=== PATIENT | female | born 1995 | race Two or more races ===

== ENCOUNTER 2024-08-20 10:09 | Emergency (ER) | payer MEDICAID, SELFPAY ==
[2024-08-20 10:51] VITALS: BP 136/87; PULSE 87; RESP 18; TEMP 36.4; O2SAT 95; BMI 35.4
--- NOTE | 2024-08-20 11:16 | XR_ITS ---
EXAMINATION: Ankle, right 3 views . Technique: Ankle AP, oblique, lateral 3 views Date and time of exam: August 20, 2024, 1128 hrs. Indications: Injury to the ankle yesterday, ankle pain Findings: No fracture or dislocation. Impression: No fracture or dislocation. No foreign body
--- NOTE | 2024-08-20 11:17 | EDNOTE_ITS ---
Lower Extremity Injury RME/HPI General Chief Complaint: Ankle/Foot Injury Stated Complaint: RIGHT ANKLE PAIN, SWELLING, BRUISED; TYLENOL 0700 Time Seen by Provider: 08/20/24 10:18 Arrival date/time: 08/20/24 10:09 This is a 29-year-old female that comes into the emergency room with complaints. c/o right ankle pain status post rolling it yesterday. Patient states that she has a hard time putting weight on it. Related Data Previous Rx's ?Medication ?Instructions ?Recorded cefuroxime axetil 500 mg tablet 500 mg PO BID #14 tabs 11/04/23 ibuprofen 800 mg tablet 800 mg PO TID PRN pain #30 t abs 11/04/23 ibuprofen 800 mg tablet 800 mg PO Q6H PRN pain #20 t abs 08/20/24 Allergies Allergy/AdvReac Type Severity Reaction Status Date / Time No Known Allergies Allergy Verified 06/07/23 11:09 Review of Systems Review of Systems Systems Reviewed: All systems reviewed, normal except as documented Past Medical History Past Medical History CARDIAC: Negative Cardiac Disorders or Congestive Heart Failure RESPIRATORY: Positive Asthma; Negative Chronic Obstructive Pulmonary Disease (COPD) GENITOURINARY: Positive Renal Disease ENDOCRINE: Negative Diabetes Mellitus Type 1 or Diabetes Mellitus Type 2 HEMATOLOGIC: Negative Sickle Cell Disease Social History SMOKING STATUS: Never smoker ED Exam Narrative Physical exam: VITAL SIGNS: Reviewed. GENERAL APPEARANCE: Alert and interactive, follows commands, no acute distress HEAD AND FACE: Non-traumatic. ENT: PERRL, conjuctiva pink and clear, eyelid no trauma, Mucous membrane moist. NECK: Supple, nontender, no nuchal rigidity. CHEST: No tenderness, no crepitus, no paradoxical movement, no retractions. LUNGS: breathing even and unlabored HEART: Regular rate, cap refill less than 2 seconds ABDOMEN: Soft, nondistended, no guarding, nontender NEUROLOGICAL: Gross motor function intact sensory function intact, Appropriate for age. MUSCULOSKELETAL: low back nontender, full range of motion. EXTREMITIES: right ank;le mild swelling, Distal neurovascular status intact bilateral foot SKIN: Color pink, dry, no rash, no lacerations, no abrasions, no contusions. Course Quality Measures none Orders Category Date Time Status XR ankle comp RT min 3V Stat Exams 08/20/24 11:16 Completed XR foot comp RT min 3V Stat Exams 08/20/24 13:41 Completed Ibuprofen Tab [Motrin Tab] Med 08/20/24 13:41 Discontinued 800 mg PO X1 ONE Vital Signs Vital signs: Vital Signs Temperature 97.6 F 08/20/24 10:51 Pulse Rate 87 08/20/24 10:51 Respiratory Rate 18 08/20/24 10:51 Blood Pressure 136/87 H 08/20/24 10:51 Pulse Oximetry (%) 95 08/20/24 10:51 Oxygen Delivery Method Room Air 08/20/24 10:51 Extremity Injury, Lower MDM Narrative MDM Narrative:: ankle x ray: Findings: No fracture or dislocation. Impression: No fracture or dislocation. No foreign body foot x ray: Findings: No acute fracture No dislocation No foreign body Impression: No acute fracture Today patient had xrays done. There was no acute fracture seen. Exam appeared unremarkable. I explained to patient at length that if there was continued pain to this area or worsened to come back to ED or see primary provider for more xrays or further testing such as CT scan or MRI. X rays are not perfect and sometimes serial films needed. Patient verbalized understanding. Patient states they will follow up with primary provider in 1-2 days or come back to ED if symptoms change or worsen. Patient data External records reviewed:: [facility] previous records Clinical information provided by:: patient Social determinants that could affect healthcare access:: none Patient has the following chronic illnesses:: none How is presenting disease/condition affected by chronic disease/condition?: no chronic disease Evaluation data The following diagnostics were reviewed and interpreted by me:: radiology exam(s) Lab and/or radiology exams considered but not ordered:: none Interpretation Summary: see note Medications / Prescriptions Medications or Prescriptions considered but not ordered:: none Medication administrations:: Medication Administration History Discontinued Medications Ibuprofen (Ibuprofen Tab 400 Mg Tablet) 800 mg PO X1 ONE Stop: 08/20/24 13:42 Last Admin: 08/20/24 14:04 Dose: 800 mg Documented By: [facility] Consultations Consultation(s) initiated? (list below): No Diagnosis Most likely diagnosis given after review of the tests above:: contusion Admission Indicated Admission indicated?: not indicated Admission Request Was there a request for admission?: No Disposition Plan Disposition Plan: Discharge Discharge Attestation Discharge Attestation: The patient and all family members were given an opportunity to ask questions and understood the discharge instructions. Discharge instructions specifically effects, indications for sooner follow up or return to the emergency department, and the expected course of current diagnosis. Patient condition: Stable Discharge Plan Plan Patient Disposition: HOME (Self Care) Patient condition on transfer: Stable Prescriptions/Referrals Prescriptions/Med Rec: New ibuprofen 800 mg tablet 800 mg PO Q6H PRN (Reason: pain) Qty: 20 0RF No Action cefuroxime axetil 500 mg tablet 500 mg PO BID Qty: 14 0RF ibuprofen 800 mg tablet 800 mg PO TID PRN (Reason: pain) Qty: 30 0RF Referrals: George Merino MD [Primary Care Provider] - In 1 week Problem List Clinical Impression: Contusion of foot Patient/Caregiver Discharge Instructions Discharge Activity: activity as tolerated Education Materials: Bruises (Contusions), ED RICE Additional Instructions: Follow up with primary provider in 1-2 days. Come back to ED if symptoms change or worsen Print Language: Gambian Stand Alone Forms: [employer] Award Info., Patient Portal Info Letter PA/WOLFGANG Supervising Physician PA/[employer] Supervising Physician: rodger
--- NOTE | 2024-08-20 13:41 | XR_ITS ---
Examination: Foot, right, 3 views Technique: AP, oblique, lateral views foot, 3 views Date and time of exam: August 20, 2024, 1358 hrs. Indications: Twisting injury to the foot today, foot pain Findings: No acute fracture No dislocation No foreign body Impression: No acute fracture
[2024-08-20] MEDS: IBUPROFEN TAB 400 MG TABLET 800 MG PO (14:04)
== END 2024-08-20 15:17 | disposition home or self-care (01) ==
PROVIDERS: Emergency Provider Nurse Practitioner Family; PCP Family Medicine
DX: S90.31XA Contusion of right foot, initial encounter (principal); X58.XXXA Exposure to other specified factors, initial encounter
CPT/HCPCS: 73610; 73630; 99283; A9270

== ENCOUNTER 2024-10-30 19:17 | Emergency (ER) | payer MEDICAID, SELFPAY ==
[2024-10-30 20:51] VITALS: BP 133/83; PULSE 91; RESP 20; TEMP 37.1; O2SAT 97
--- NOTE | 2024-10-30 21:09 | XR_ITS ---
Examination: Foot, left, 3 views Technique: AP, oblique, lateral views foot, 3 views Date and time of exam: October 30, 2024, 2108 hrs. Indications: Left foot pain today no trauma. Findings: No fracture. No cortical bone destruction. No foreign body Impression: No fracture or cortical bone destruction
--- NOTE | 2024-10-30 21:09 | PD.EDANKLE ---
Lower Extremity Injury RME/HPI General Chief Complaint: Ankle/Foot Injury Stated Complaint: LEFT FOOT PAIN Time Seen by Provider: 10/30/24 19:42 Source: patient, RN notes reviewed and old records reviewed Arrival date/time: 10/30/24 19:17 Mode of arrival: wheelchair Limitations: no limitations RME / HPI RME / HPI Narrative: 29yof presents to ED for pain to plantar left foot since yesterday. No preceding injury or fall. Patient reports increased pain with bearing weight and ambulation. Ibuprofen taken this morning with mild relief. No fever, redness, foot swelling or numbness/tingling reported. Related Data Previous Rx's ?Medication ?Instructions ?Recorded cefuroxime axetil 500 mg tablet 500 mg PO BID #14 tabs 11/04/23 ibuprofen 800 mg tablet 800 mg PO TID PRN pain #30 tabs 11/04/23 ibuprofen 800 mg tablet 800 mg PO Q6H PRN pain #20 tabs 08/20/24 Allergies Allergy/AdvReac Type Severity Reaction Status Date / Time No Known Allergies Allergy Verified 10/30/24 19:18 Review of Systems Review of Systems Systems Reviewed: All systems reviewed, normal except as documented Constitutional Constitutional: Denies chills and Denies fever(s) Musculoskeletal Musculoskeletal: Denies arthralgias, Denies joint swelling, Reports limited range of motion, Denies numbness and Denies tingling Comments: Reports foot pain Integumentary/Breasts Skin/Breast: Denies erythema Neurologic Neurologic: Denies numbness and Denies tingling Past Medical History Past Medical History RESPIRATORY: Positive Asthma GASTROINTESTINAL: Positive Obesity Social History SMOKING STATUS: Current some day smoker SUBSTANCE USE: marijuana ED Exam General Limitations: Present no limitations General appearance: Present alert, in no apparent distress and obese Head Head exam: Present atraumatic and normocephalic Eye Eye exam: Present normal appearance, PERRL and EOMI ENT ENT exam: Present normal exam and mucous membranes moist Neck Neck exam: Present normal inspection and full ROM Chest Chest inspection: Present normal inspection and symmetric chest wall rise Respiratory Respiratory exam: Present normal lung sounds bilaterally; Absent respiratory distress Cardiovascular Cardiovascular exam: Present regular rate and normal rhythm Extremities Exam Extremities exam: Present other (Mild tenderness to plantar left foot. No swelling or redness. No malleolar ttp. Limited ROM 2/2 pain. Able to wiggle all toes. 2+ pedal pulse, sensation intact) Back Exam Back exam: Present normal inspection and full ROM; Absent tenderness Neurological Exam Neurological exam: Present alert and oriented X3 Psychiatric Psychiatric exam: Present normal affect and normal mood Skin Skin exam: Present warm, dry, intact and normal color; Absent rash Course Quality Measures none Orders Category Date Time Status XR foot comp LT min 3V Stat Exams 10/30/24 21:09 Completed CYCLObenzaPRINE [Flexeril] Med 10/30/24 21:09 Discontinued 10 mg PO X1 ONE Ketorolac Inj [Toradol Inj] Med 10/30/24 21:09 Discontinued 30 mg IM X1 ONE Vital Signs Vital signs: Vital Signs Temperature 98.7 F 10/30/24 20:51 Pulse Rate 91 10/30/24 20:51 Respiratory Rate 20 10/30/24 20:51 Blood Pressure 133/83 H 10/30/24 20:51 Pulse Oximetry (%) 97 10/30/24 20:51 Oxygen Delivery Method Room Air 10/30/24 20:51 Extremity Injury, Lower MDM Narrative MDM Narrative:: 29yof presents to ED for pain to plantar left foot since yesterday. No preceding injury or fall. Patient reports increased pain with bearing weight and ambulation. Ibuprofen taken this morning with mild relief. No fever, redness, foot swelling or numbness/tingling reported. Patient eloped from ED prior to pain meds and discharge. Patient data External records reviewed:: [facility] previous records (08/20/2024 ED visit for foot contusion) Clinical information provided by:: patient Social determinants that could affect healthcare access:: other (specify) (Poor access to healthcare) Patient has the following chronic illnesses:: Obesity How is presenting disease/condition affected by chronic disease/condition?: exacerbated by Evaluation data The following diagnostics were reviewed and interpreted by me:: radiology exam(s) Lab and/or radiology exams considered but not ordered:: None Interpretation Summary: Foot x-rays: No fracture per my read Medications / Prescriptions Medications or Prescriptions considered but not ordered:: None Medication administrations:: Medication Administration History Discontinued Medications Cyclobenzaprine HCl (Cyclobenzaprine 5 Mg Tablet) 10 mg PO X1 ONE Stop: 10/30/24 21:10 Ketorolac Tromethamine (Ketorolac Inj 30 Mg/Ml Vial) 30 mg IM X1 ONE Stop: 10/30/24 21:10 Patient eloped prior to med administration Consultations Consultation(s) initiated? (list below): No Diagnosis Extremity Injury, Lower Differential Diagnosis: other (Fracture, sprain, strain, contusion, MSK pain, plantar fasciitis) Most likely diagnosis given after review of the tests above:: Foot pain, plantar fasciitis Admission Indicated Admission indicated?: not indicated Admission Request Was there a request for admission?: No Disposition Plan Disposition Plan: Discharge Discharge Attestation Discharge Attestation: The patient and all family members were given an opportunity to ask questions and understood the discharge instructions. Discharge instructions specifically effects, indications for sooner follow up or return to the emergency department, and the expected course of current diagnosis. Patient condition: Stable Discharge Plan Plan Patient Disposition: Elopement Patient condition on transfer: Stable Prescriptions/Referrals Prescriptions/Med Rec: No Action ibuprofen 800 mg tablet 800 mg PO Q6H PRN (Reason: pain) Qty: 20 0RF cefuroxime axetil 500 mg tablet 500 mg PO BID Qty: 14 0RF ibuprofen 800 mg tablet 800 mg PO TID PRN (Reason: pain) Qty: 30 0RF Referrals: Henok Rm PA-C [Primary Care Provider] - In 1 week Problem List Clinical Impression: Left foot pain Patient/Caregiver Discharge Instructions Print Language: Ukrainian
--- NOTE | 2024-10-30 23:28 | PC.LAC ---
pt eloped below are the times 0 [id number]
== END 2024-10-30 23:28 | disposition left against medical advice (07) ==
LOC: SERX 21:54
PROVIDERS: Emergency Provider Emergency Medicine; PCP Family Medicine
DX: M79.672 Pain in left foot (principal); Z53.29 Procedure and treatment not carried out because of patient's decision for other reasons; E66.9 Obesity, unspecified
CPT/HCPCS: 73630; 99283